=== PATIENT | female | born 1995 | race Caucasian/White ===

== ENCOUNTER 2023-08-11 14:41 | Emergency (ER) | payer OTHER, SELFPAY ==
[2023-08-11 15:21] VITALS: BP 114/81; PULSE 71; RESP 18; TEMP 36.4; O2SAT 99
--- NOTE | 2023-08-11 15:30 | ED.ABDPAIN ---
HPI - Abdominal Pain General Time Seen by Provider: 15:30 <Arianna Chowdary MD - Last Filed: 08/11/23 16:08> Date Seen: 08/11/23 <Arianna Chowdary MD - Last Filed: 08/11/23 16:08> Chief Complaint: Abdominal Pain <Arianna Chowdary MD - Last Filed: 08/11/23 16:08> Stated Complaint: Abdominal pain <Arianna Chowdary MD - Last Filed: 08/11/23 16:08> Time Seen by Provider: 08/11/23 15:30 <Arianna Chowdary MD - Last Filed: 08/11/23 16:08> Source: patient and RN notes reviewed <Arianna Chowdary MD - Last Filed: 08/11/23 16:08> Mode of arrival: ambulatory <Arianna Chowdary MD - Last Filed: 08/11/23 16:08> Limitations: no limitations <Arianna Chowdary MD - Last Filed: 08/11/23 16:08> History of Present Illness HPI narrative: Ann is a 27-year-old female sent from [place] in [facility] by Gabriel Souza [employer] with right lower quadrant abdominal pain. This patient is had urinary tract symptoms for about 2 weeks. She states she was just ignoring it hoping it would go away. There is initially some hematuria which resolved. She still having some dysuria. She has felt fatigued. No fevers but has had some chills. She had low back pain for about 2 weeks. She started with right lower quadrant to mid abdominal pain about a week ago and his just progressively gotten worse. Her LMP was 10 14. She does carry a diagnosis of endometriosis. There is no nausea vomiting diarrhea. Appetite has been normal. She has not eaten anything today. There is no family history or personal history of appendicitis or kidney stones. She has had no prior abdominal surgeries. [facility] here for further evaluation and probable need for imaging. She has limitation of available labs in clinic as well. Has been trying ibuprofen for pain management. <Arianna Chowdary MD - Last Filed: 08/11/23 16:08> MD elicited complaint: abdominal pain <Arianna Chowdary MD - Last Filed: 08/11/23 16:08> Related Data Hx Last Menstrual Period: 08/02/2023 <Arianna Chowdary MD - Last Filed: 08/11/23 16:08> Patient : No <Arianna Chowdary MD - Last Filed: 08/11/23 16:08> Home Medications: Previous Rx's Medication Instructions Recorded cefdinir 300 mg capsule 300 mg PO BID 10 days #20 caps 08/11/23 phenazopyridine 200 mg tablet 200 mg PO TID PRN pain 10 doses 08/11/23 (Pyridium) #10 tabs <Arianna Chowdary MD - Last Filed: 08/11/23 16:08> Allergies/Adverse Reactions: Allergies Allergy/AdvReac Type Severity Reaction Status Date / Time lactose Allergy Mild Upset Verified 08/11/23 15:23 stomach <Arianna Chowdary MD - Last Filed: 08/11/23 16:08> Review of Systems Status of ROS Reports: 6 or more systems reviewed and unremarkable except as noted in History and below <Arianna Chowdary MD - Last Filed: 08/11/23 16:08> [facility] Medical History: Medical History Normal spontaneous vaginal delivery ?O80 - Encounter for full-term uncomplicated delivery (ICD-10) History of varicella as a child ?Z86.19 - Personal history of other infectious and parasitic diseases (ICD-10) History of irregular menstrual cycles ?Z87.42 - Personal history of other diseases of the female genital tract (ICD-10) <Arianna Chowdary MD - Last Filed: 08/11/23 16:08> Surgical History: Surgical History History of third molar tooth extraction ?K08.409 - Partial loss of teeth, unspecified cause, unspecified class (ICD-10) History of laparoscopy (2016) ?Z98.890 - Other specified postprocedural states (ICD-10) <Arianna Chowdary MD - Last Filed: 08/11/23 16:08> Family History: Family History Maternal Grandmother Diabetes Paternal Grandmother Diabetes Uncle Diabetes Other Skin cancer <Arianna Chowdary MD - Last Filed: 08/11/23 16:08> Social History: Social History Narrative: Former smoker, Quit 03/27/2018 Tattoo 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 Highest level of school completed/degree received: high school graduate Smoking Status: Former smoker What tobacco products do you use: cigarettes Smoking quit date/years: <= 15 years ago Do you use any of these nicotine containing products: None Nicotine containing products detail: 2 cigarettes per day Second hand tobacco smoke exposure: No How often do you have a drink containing alcohol: 2-3 times a week How many standard drinks containing alcohol do you have on a typical day: 1 or 2 How often do you have six or more drinks on one occasion: Never AUDIT-C Alcohol total score: 3 Non-prescribed substance use: denies use Are you now , , , , never or living with a partner: Social isolation score (0-1 are the most socially isolated patients): 1 Gender Identity: female <Arianna Chowdary MD - Last Filed: 08/11/23 16:08> Exam Const: Vital Signs, click to edit/add: Vital Signs - 24 hr 08/11/23 15:21 Temperature 97.5 F L Pulse Rate [Right] 71 Respiratory Rate 18 Blood Pressure [Ri ght Upper Arm] 114/81 Pulse Oximetry 99 Oxygen Delivery Me thod Room Air Slender 27-year-old female ambulatory into the ED of her own accord. She is alert, interactive, no apparent distress. Sclera clear, speech normal. Lungs are clear with good air entry, no tachypnea, no wheezing or crackles. CV regular rate and rhythm, no murmur, normal S1 and S2. Abdomen is flat, soft, has right flank/CVA tenderness but no skin changes that are visible. She has mid abdominal to right lower quadrant tenderness without any rebound or guarding. There is no palpable underlying masses or organomegaly. <Arianna Chowdary MD - Last Filed: 08/11/23 16:08> Vital Signs, click to edit/add: Vital Signs - 24 hr 08/11/23 15:21 Temperature 97.5 F L Pulse Rate [Right] 71 Respiratory Rate 18 Blood Pressure [Ri ght Upper Arm] 114/81 Pulse Oximetry 99 Oxygen Delivery Me thod Room Air <Deon Mayen MD - Last Filed: 08/11/23 17:59> Documenting provider has reviewed patient's vital signs: yes <Arianna Chowdary MD - Last Filed: 08/11/23 16:08> Course Course ED Course: Will confirm negative test, obtain urinalysis. Patient will get basic labs including a CBC. Certainly in this differential urinary pathology including infection, kidney stones are all possibilities. Need to consider possible appendicitis although the time frame makes this less likely for me, has been going on potentially too long for that to be high suspicion. Doubt she has a surgical abdomen unless she might require some urinary intervention for a large kidney stone. Certainly will get imaging but patient is aware that I will wait for the CBC in urinalysis to come back for ordering CT imaging. She will likely have a CT of her abdomen, will need to decide on IV contrast or not. This really does not seem to be consistent with ovarian pathology but could be a consideration. <Arianna Chowdary MD - Last Filed: 08/11/23 16:08> Reevaluation(s) Time of Reevaluation #1: 16:08 <Arianna Chowdary MD - Last Filed: 08/11/23 16:08> Reevaluation #1: Reviewed with patient that she would be getting a CT scan of her abdomen without IV contrast. She is awaiting IV and labs. Have ordered 2 g IV Rocephin to treat for probable underlying urinary tract infection. We need to rule out any underlying kidney stone pathology. If there are no kidney stone seen, likely has some ascending urinary infection. She is taking orals, afebrile, do not believe she will need hospitalization. Care will be signed over to Dr. Mayen. <Arianna Chowdary MD - Last Filed: 08/11/23 16:08> Time of Reevaluation #2: 17:01 <Deon Mayen MD - Last Filed: 08/11/23 17:59> Reevaluation #2: Patient accepted in sign-out from Dr. Barillas. Briefly, 27-year-old female who comes in today with urinary symptoms abdominal pain. Urinalysis is consistent with infection patient has been given Rocephin, plan to discharge with Omnicef. CT scan is pending at this time, labs independently interpreted by me with normal basic panel, normal CBC. <Deon Mayen MD - Last Filed: 08/11/23 17:59> Time of Reevaluation #3: 17:57 <Deon Mayen MD - Last Filed: 08/11/23 17:59> Reevaluation #3: CT scan independently interpreted by me does not demonstrate any evidence of ureteral stone or other intra-abdominal pathology. Patient stable for discharge with antibiotics for urinary tract infection and outpatient follow-up. <Deon Mayen MD - Last Filed: 08/11/23 17:59> Vital Signs Vital signs: Initial Vital Signs Temperature 97.5 F L 08/11/23 15:21 Temperature Source Temporal Artery Scan 08/11/23 15:21 Pulse Rate 71 08/11/23 15:21 Pulse Strength 3+ Normal 08/11/23 15:21 Respiratory Rate 18 08/11/23 15:21 Blood Pressure 114/81 08/11/23 15:21 Blood Pressure Mean 92 08/11/23 15:21 Blood Pressure Position Sitting 08/11/23 15:21 Pulse Oximetry 99 08/11/23 15:21 Oxygen Delivery Method Room Air 08/11/23 15:21 Vital Signs Temperature 97.5 F L 08/11/23 15:21 Pulse Rate 71 08/11/23 15:21 Respiratory Rate 18 08/11/23 15:21 Blood Pressure 114/81 08/11/23 15:21 Pulse Oximetry 99 08/11/23 15:21 Oxygen Delivery Method Room Air 08/11/23 15:21 Temperature 97.5 F L 08/11/23 15:21 Pulse Rate 71 08/11/23 15:21 Respiratory Rate 18 08/11/23 15:21 Blood Pressure 114/81 08/11/23 15:21 Pulse Oximetry 99 08/11/23 15:21 Oxygen Delivery Method Room Air 08/11/23 15:21 <Arianna Chowdary MD - Last Filed: 08/11/23 16:08> Initial Vital Signs Temperature 97.5 F L 08/11/23 15:21 Temperature Source Temporal Artery Scan 08/11/23 15:21 Pulse Rate 71 08/11/23 15:21 Pulse Strength 3+ Normal 08/11/23 15:21 Respiratory Rate 18 08/11/23 15:21 Blood Pressure 114/81 08/11/23 15:21 Blood Pressure Mean 92 08/11/23 15:21 Blood Pressure Position Sitting 08/11/23 15:21 Pulse Oximetry 99 08/11/23 15:21 Oxygen Delivery Method Room Air 08/11/23 15:21 Vital Signs Temperature 97.5 F L 08/11/23 15:21 Pulse Rate 71 08/11/23 15:21 Respiratory Rate 18 08/11/23 15:21 Blood Pressure 114/81 08/11/23 15:21 Pulse Oximetry 99 08/11/23 15:21 Oxygen Delivery Method Room Air 08/11/23 15:21 Temperature 97.5 F L 08/11/23 15:21 Pulse Rate 71 08/11/23 15:21 Respiratory Rate 18 08/11/23 15:21 Blood Pressure 114/81 08/11/23 15:21 Pulse Oximetry 99 08/11/23 15:21 Oxygen Delivery Method Room Air 08/11/23 15:21 <Deon Mayen MD - Last Filed: 08/11/23 17:59> MDM - Abdominal Pain Lab Data Attestation: I reviewed the patient's lab results. <Arianna Chowdary MD - Last Filed: 08/11/23 16:08> Labs: Lab Results 08/11/23 08/11/23 Range/Units 15:30 15:58 WBC 5.41 (4.50-11.00) K/uL RBC 4.39 (4.00-5.20) m/uL Hgb 12.6 (12.0-16.0) gm/dL Hct 38.7 (33.0-51.0) % MCV 88 (80-100) fL MCH 29 (26-34) pg MCHC 33 (32-36) gm/dL RDW Coeff of Martha 12.1 (11.5-15.5) % Plt Count 274 (140-440) K/uL Neut % (Auto) 63.6 (42.0-72.0) % Lymph % (Auto) 25.1 (20-44) % Lamar % (Auto) 7.9 (0.0-11.0) % Eos % (Auto) 2.8 (0.0-7.0) % Baso % (Auto) 0.6 (0.0-3.0) % Neut # (Auto) 3.44 (1.7-7.0) K/uL Lymph # (Auto) 1.36 (0.90-2.90) K/uL Lamar # (Auto) 0.40 (0.00-0.90) K/UL Eos # (Auto) 0.15 (0.00-0.50) K/uL Baso # (Auto) 0.03 (0.00-0.30) K/uL Abs Immat Gran (auto) 0.00 (0.00-0.30) K/uL Imm/Tot Granulo (auto) 0.0 % Sodium 139 (135-149) mmol/L Potassium 3.9 (3.6-5.1) mmol/L Chloride 105 (96-114) mmol/L Carbon Dioxide 26 (20-32) mmol/L Anion Gap 8 (7-15) mEq/L BUN 11 (5-24) mg/dL Creatinine 0.8 (0.5-1.5) mg/dL Estimated GFR 102 ml/min Glucose 81 (60-115) mg/dL Calcium 8.7 (8.4-10.6) mg/dL Total Bilirubin 0.7 (0.1-1.5) mg/dL AST 36 H (12-35) U/L ALT 15 (4-35) U/L Alkaline Phosphatase 64 (40-150) U/L C-Reactive Protein 4.8 H (0.5-1.0) mg/dL Total Protein 7.7 (6.0-8.3) g/dL Albumin 4.4 (3.3-5.0) g/dL Urine Color Yellow (Yellow) Urine Appearance Cloudy A (Clear) Urine pH 6.0 (5.0-8.5) Ur Specific Kendrick 1.010 (1.000-1.030) Urine Protein Negative (Negative) Urine Glucose (UA) Negative (Negative) Urine Ketones Negative (Negative) Urine Blood Trace-intact A (Negative) Urine Nitrite Positive A (Negative) Urine Bilirubin Negative (Negative) Urine Urobilinogen 1.0 (0.2-1.0) Ur Leukocyte Esterase 1+ A (Negative) Urine RBC 0-2 (0-2) Urine WBC 10-25 A (0-5) Ur Squamous Epith Cells Moderate A (None-Few) Urine Bacteria Many A (None) Urine HCG, Qual Negative (Negative) <Arianna Chowdary MD - Last Filed: 08/11/23 16:08> Lab Results 08/11/23 08/11/23 Range/Units 15:30 15:58 WBC 5.41 (4.50-11.00) K/uL RBC 4.39 (4.00-5.20) m/uL Hgb 12.6 (12.0-16.0) gm/dL Hct 38.7 (33.0-51.0) % MCV 88 (80-100) fL MCH 29 (26-34) pg MCHC 33 (32-36) gm/dL RDW Coeff of Martha 12.1 (11.5-15.5) % Plt Count 274 (140-440) K/uL Neut % (Auto) 63.6 (42.0-72.0) % Lymph % (Auto) 25.1 (20-44) % Lamar % (Auto) 7.9 (0.0-11.0) % Eos % (Auto) 2.8 (0.0-7.0) % Baso % (Auto) 0.6 (0.0-3.0) % Neut # (Auto) 3.44 (1.7-7.0) K/uL Lymph # (Auto) 1.36 (0.90-2.90) K/uL Lamar # (Auto) 0.40 (0.00-0.90) K/UL Eos # (Auto) 0.15 (0.00-0.50) K/uL Baso # (Auto) 0.03 (0.00-0.30) K/uL Abs Immat Gran (auto) 0.00 (0.00-0.30) K/uL Imm/Tot Granulo (auto) 0.0 % Sodium 139 (135-149) mmol/L Potassium 3.9 (3.6-5.1) mmol/L Chloride 105 (96-114) mmol/L Carbon Dioxide 26 (20-32) mmol/L Anion Gap 8 (7-15) mEq/L BUN 11 (5-24) mg/dL Creatinine 0.8 (0.5-1.5) mg/dL Estimated GFR 102 ml/min Glucose 81 (60-115) mg/dL Calcium 8.7 (8.4-10.6) mg/dL Total Bilirubin 0.7 (0.1-1.5) mg/dL AST 36 H (12-35) U/L ALT 15 (4-35) U/L Alkaline Phosphatase 64 (40-150) U/L C-Reactive Protein 4.8 H (0.5-1.0) mg/dL Total Protein 7.7 (6.0-8.3) g/dL Albumin 4.4 (3.3-5.0) g/dL Urine Color Yellow (Yellow) Urine Appearance Cloudy A (Clear) Urine pH 6.0 (5.0-8.5) Ur Specific Kendrick 1.010 (1.000-1.030) Urine Protein Negative (Negative) Urine Glucose (UA) Negative (Negative) Urine Ketones Negative (Negative) Urine Blood Trace-intact A (Negative) Urine Nitrite Positive A (Negative) Urine Bilirubin Negative (Negative) Urine Urobilinogen 1.0 (0.2-1.0) Ur Leukocyte Esterase 1+ A (Negative) Urine RBC 0-2 (0-2) Urine WBC 10-25 A (0-5) Ur Squamous Epith Cells Moderate A (None-Few) Urine Bacteria Many A (None) Urine HCG, Qual Negative (Negative) <Deon Mayen MD - Last Filed: 08/11/23 17:59> Discharge Plan Discharge Clinical Impression: Acute lower UTI <Arianna Chowdary MD - Last Filed: 08/11/23 16:08> Patient Disposition: Home, Self-Care <Arianna Chowdary MD - Last Filed: 08/11/23 16:08> Condition: Stable <Arianna Chowdary MD - Last Filed: 08/11/23 16:08> Instructions: Urinary Tract Infection in Women (DC) <Arianna Chowdary MD - Last Filed: 08/11/23 16:08> Activity Level: No Restrictions and Activity as Tolerated <Arianna Chowdary MD - Last Filed: 08/11/23 16:08> No Restrictions and Activity as Tolerated <Deon Mayen MD - Last Filed: 08/11/23 17:59> Discharge Diet: Regular <Arianna Chowdary MD - Last Filed: 08/11/23 16:08> Regular <Deon Mayen MD - Last Filed: 08/11/23 17:59> Prescriptions: New cefdinir 300 mg capsule 300 mg PO BID 10 Days Qty: 20 0RF phenazopyridine [Pyridium] 200 mg tablet 200 mg PO TID PRN (Reason: pain) Qty: 10 0RF <Arianna Chowdary MD - Last Filed: 08/11/23 16:08> Follow Up/Referrals: Provider,Not a Local [Primary Care Provider] - <Arianna Chowdary MD - Last Filed: 08/11/23 16:08> Stand Alone Forms: MyHealth Info Instructions <Arianna Chowdary MD - Last Filed: 08/11/23 16:08>
[2023-08-11 15:39] LABS: Ur HCG Qualitative* Negative (Negative)
[2023-08-11 15:41] LABS: Appearance Urine Cloudy (Clear); Bilirubin Urine Negative (Negative); Blood Urine Trace-intact (Negative); Color Urine Yellow (Yellow); Glucose Urine Negative (Negative); Ketones Urine Negative (Negative); Leukocyte Esterase Urine 1+ (Negative); Nitrite Urine Positive (Negative); Protein Urine Negative (Negative)
[2023-08-11 15:53] LABS: Bacteria Urine Many; RBC Urine 0-2 (0-2); Squamous Epithelial Cell Urine Moderate (None-Few)
[2023-08-11] MEDS: KETOROLAC 15 MG/ML inj IVP (15:56)
--- NOTE | 2023-08-11 16:04 | CRLHL7_ITS ---
For Patients: As a result of the Century Cures Act, medical imaging exams and procedure reports are released immediately into your electronic medical record. You may view this report before your referring provider. If you have questions, please contact your health care provider. INDICATION: Right-sided abdominal pain. TECHNIQUE: CT abdomen and pelvis without contrast. COMPARISON: None. FINDINGS: Lower chest: Unremarkable. Liver: Normal in size and attenuation. No suspicious masses. Gallbladder and bile ducts: No stones or inflammation. No biliary dilatation. Pancreas: Unremarkable. No mass or inflammation. Spleen: Normal in size. No masses. Adrenal glands: Normal in size. No nodules. Kidneys: Normal in size. No suspicious masses, stones, or hydronephrosis. GI tract: Mild colonic stool burden. Normal in caliber. No sign of mass or inflammation. Normal appendix. Vasculature: Abdominal aorta is normal in caliber. Lymph nodes: No lymphadenopathy. Peritoneum/Abdominal Wall: Unremarkable. No sign of mass or infiltration. No free air or significant free fluid. Pelvis: Unremarkable. No pelvic masses. Bones: Unremarkable for age. IMPRESSION: No acute intra-abdominal abnormality. Mild colonic stool burden. Please note that all CT scans at this facility use dose modulation, iterative reconstruction, and/or weight-based dosing when appropriate to reduce radiation dose to as low as reasonably achievable. Dictated by Bobby Rider MD @ 08/11/2023 6:43:17 PM (Electronically Signed)
[2023-08-11 16:09] LABS: Basophils Absolute Auto 0.03 K/uL (0.00-0.30); Basophils Percent Auto 0.6 % (0.0-3.0); Eosinophils Absolute Auto 0.15 K/uL (0.00-0.50); Eosinophils Percent Auto 2.8 % (0.0-7.0); Hematocrit 38.7 % (33.0-51.0); Hemoglobin* 12.6 gm/dL (12.0-16.0); Lymphocytes Absolute Auto 1.36 K/uL (0.90-2.90); Lymphocytes Percent Auto 25.1 % (20-44); Mean Corpuscular HGB Conc 33 gm/dL (32-36); Mean Corpuscular Hemoglobin 29 pg (26-34); Mean Corpuscular Volume 88 fL (80-100); Monocytes Percent Auto 7.9 % (0.0-11.0); Neutrophils Absolute Auto 3.44 K/uL (1.7-7.0); Neutrophils Percent Auto 63.6 % (42.0-72.0); Platelet Count* 274 K/uL (140-440); RDW Coefficient of Variation % 12.1 % (11.5-15.5); Red Blood Count 4.39 m/uL (4.00-5.20); White Blood Count* 5.41 K/uL (4.50-11.00)
[2023-08-11 16:21] LABS: Albumin* 4.4 g/dL (3.3-5.0); Chloride* 105 mmol/L (96-114); Slide Review Reflex No
[2023-08-11 16:22] LABS: Potassium* 3.9 mmol/L (3.6-5.1); Sodium* 139 mmol/L (135-149)
[2023-08-11 16:24] LABS: Bilirubin Total* 0.7 mg/dL (0.1-1.5); Creatinine* 0.8 mg/dL (0.5-1.5); Estimated Glomerular Filt Rate 102 ml/min
[2023-08-11 16:25] LABS: Alanine Aminotransferase* 15 U/L (4-35); Alkaline Phosphatase* 64 U/L (40-150); Anion Gap 8 mEq/L (7-15); Aspartate Amino Transferase* 36 U/L (12-35); Blood Urea Nitrogen* 11 mg/dL (5-24); Calcium* 8.7 mg/dL (8.4-10.6); Carbon Dioxide* 26 mmol/L (20-32); Glucose* 81 mg/dL (60-115); Total Protein* 7.7 g/dL (6.0-8.3)
[2023-08-11] MEDS: cefTRIAXone 2 GM in 0.9 % SODIUM CHLORIDE Mini-bag 100 ML IVPB (16:26)
[2023-08-11 16:27] LABS: C Reactive Protein* 4.8 mg/dL (0.5-1.0)
== END 2023-08-11 18:09 | disposition home or self-care (01) ==
PROVIDERS: Emergency Provider Family Medicine
DX: N39.0 Urinary tract infection, site not specified (principal)
CPT/HCPCS: 36415; 74176; 80053; 81001; 81025; 85025; 86140; 87086; 87186; 96365; 96375; 99284; J0696; J1885

== ENCOUNTER 2024-06-17 07:41 | Outpatient (CLI) | payer OTHER, SELFPAY ==
--- OUTSIDE RECORDS SUMMARY | 2024-06-17 07:44 | XMS_ITS | Clinical Summary ---
Author Organization [facility] Address [place], [place] [address] Care Team Providers Care Dowel Maker Name Role Phone None Primary Care Provider Unavailabl e Allergies Active Allergy Reactions Criticality Noted Date Comments Lactase *Unknown 11/03/2018 Upset stomach Medications No known medications Active Problems Problem Noted Date Diagnosed Date Tobacco dependence 02/03/2023 ASCUS with positive high risk HPV cervical 04/19 Overview: 04/2018 ASCUS/HPV positive; Plan: pap in 1 year; Due- 04/2019 Cyst of left ovary 11/10/2015 Overview: Recommend follow up us in 6 weeks after menses Endometriosis determined by laparoscopy 10/20/19 16 Resolved Problems Problem Noted Date Diagnosed Date Resolved Date Closed fracture of shaft of metacarpal bone 05/19/2019 02/03/2023 02/03/2023 Supervision of normal first teen , unspecified trimester 04/01/2018 02/03/2023 Overview: 22 y.o. Patient preferred name: Only if different, otherwise erase AMA if appropriate Domestic violence screen only if positive Medical concerns Early GTT indicated: BMI >25 or >23 in Americans and no H/O vag delivery X #(dates, name of children, any problems) Genetic screening: desires ultrasound only ( [place] or [place]) BMI:# Recommended wt gain Write smoker only if a smoker, otherwise erase HSV: n/a Ultrasound findings: n/a Flu vaccine: n/a Pertussis Vaccine: up to date Peds: up to date Single keeping/: . FOB: involved, name. involved. Varicella w/o complication 0 01/31/2014 Overview: childhood disease Immunizations Name Administration Dates Next Due DTaP 03/06/1995,01/10/1995,07/10/1994 ,03/26/1994 HIB PRP-T (ActHIB,Hiberix) 03/06/1995,01/10/1995 ,07/10/1994,03/26/1994 HPV 9 (Gardasil 9) 05/06/2017 Hepatitis A (Peds) 08/17/2010,06/03/2006 Hepatitis B (Peds) 07/10/1994,03/26/1994, 994 Human Papilloma Virus Vaccine 08/26/2014, 014 Inactivated Polio Vaccine 06/03/2006 MMR 06/03/2006,03/06/1995 Meningococcal Vaccine (Menveo) 06/21/2014 Oral Polio Vaccine 03/06/1995,07/10/1994, 994 Tdap 05/06/2017,06/03/2006 Family History Medical History Relation Name Comments Good Health Brother 4 Good Health Brother 5 Good Health Brother 6 Good Health Father Good Health Maternal Grandfather Diabetes Maternal Grandmother Diabetes Maternal Uncle Cancer Mother skin Good Health Mother Unknown Paternal Grandfather no cont act Diabetes Paternal Grandmother Good Health Sister 2 Marii Relation Name Status Comments Brother 1 Alive Brother 2 Alive Brother 3 Alive Brother 4 Brother 5 Brother 6 Father Alive Maternal Grandfather Alive Maternal Grandmother Maternal Uncle Mother Alive Paternal Grandfather unknown Paternal Grandmother Sister 1 Alive Sister 2 Marii Social History Tobacco Use Types Packs/Day Years Used Date Smoking Tobacco: Every Day Cigarettes Started: 09/10/2015; Last attempted to quit: 03/27/2018 Smokeless Tobacco: Never Tobacco Cessation:Ready to Q uit: Not Asked; Counseling Given: Not Answered Comments:social Alcohol Use Standard Drinks/Week Comments Yes 0 (1 standard drink = 0.6 oz pur e alcohol) social PHQ-2 Answer Date Recorded PHQ-2 TOTAL SCORE 2 01/23/2022 Social Connections Answer Date Recorded Frequency of Communication with Friends and Fami ly Not on file 02/05/2024 Financial Resource Strain Answer Date R ecorded Difficulty of Paying Living Expenses 3 02/03/2023 Difficulty of Paying Living Expenses Not on file 02/03/2023 Food Insecurity Answer Date Recorded Worried About Running Out of Food in the Last Ye ar 1 02/03/2023 Transportation Needs Answer Date Record ed Lack of Transportation (Medical) 1 02/03/2023 Housing Stability Answer Date Recorded Unable to Pay for Housing in the Last Year 1 02/03/2023 Sex and Gender Information Value Date Recorded Sex Assigned at Not on file Gender Identity Not on file Sexual Orientation Not on file Obstetrics History Para Term AB IAB SAB Ectopic Multiple Livin g Live Births 1 0 0 0 0 0 0 0 0 0 Date Outcome GA Total Labor Labor/2nd/3rd Weight Sex Type Anes PTL Nida A1 A5 Name Clin Last Filed Vital Signs Vital Sign Reading Time Taken Comments Blood Pressure 98/64 02/03/2023 8:55 AM CDT Pulse 91 02/03/2023 8:55 AM CDT Temperature 37.2 ??C (99 ??F) 02/03/2023 8:55 AM CDT Respiratory Rate 18 02/03/2023 8:55 AM CDT Oxygen Saturation 99% 02/03/2023 8:55 AM CDT Inhaled Oxygen Concentration - - Weight 52.6 kg (116 lb) 02/03/2023 8:55 AM CDT Height 157.5 cm (5' 2) 02/03/2023 8:55 AM CDT Body Mass Index 21.22 02/03/2023 8:55 AM CDT Plan of Treatment Health Maintenance Due Date Last Done Comments Pneumococcal series for age 6-64 (1 of 2 - PCV) 1999 Hepatitis C screening for ag e 18-79 2011 Depression screening for age 12+ 01/23/2023 01/23/2022, 10/01/2017, 10/30/2016, Additional history exists Pap test for age 21-65 05/09/2023 , 04/21/2018, 04/21/2018, Additional history exists COVID-19 vaccine series (2022- season) 2023 BMI (ht and wt on same day) for age 18+ 02/04/2024 02/03/2023, 04/17/2022, 01/23/2022, Additional history exists Influenza for age 9-49 06/20/2024 Tetanus booster 05/06/2027 05/06/2017, 06/03/2006 Tdap Completed 05/06/2017, 06/03/2006 HIV for age 15-65 Completed 04/01/2018 Procedures Procedure Name Priority Date/Time Associated Diagnosis Comments PASTER OPERATOR THIN PREP PAP SCREEN IMAGED Routine 05/09/2022 1:50 PM CDT ANTI HIV 1/2 Routine 04/01/2018 12:55 PM CDT , unspecified gestational age from Last 3 Months or Most Recently Relevant to Health Maintenance Results * PASTER OPERATOR THIN PREP PAP SCREEN IMAGED (05/09/2022 1:50 PM CDT) Case Report Gynecologic Cytology Report ? Case: [id number] ? Authorizing Provider: ??Amy Donohue MD ?Collected: ? 05/09/2022 1350 ? Ordering Location: ? [facility] ?Received: ?05/13/2022 0858 ? First Screen: ?Ester Luna ? Rescreen: ?Ольга Waldron ? Pathologist: ? Dulce Dietz MD ? Specimen: ?PASTER OPERATOR ThinPrep Vial Screening, Cervical ? 05/27/2022 9:20 AM CDT [facility] INTERPRETATION/ RESULT NEGATIVE FOR INTRAEPITHELIAL LESION OR MALIGNANCY (NIL) (none) 05/27/2022 9:20 AM T [facility] R NON-NEOPLASTIC FINDING(S) Reactive cellular changes associated with inflammation/repa ir 05/27/2022 9:20 AM CDT [facility] ORGANISM(S) Shift in tarun suggestive of bacterial vaginosis 05/27/2022 9:20 AM CDT [facility] SPECIMEN ADEQUACY Satisfactory for evaluation Endocervical component present 05/27/2022 9:20 AM CDT [facility] HPV REQUEST HPV if ASCUS 05/27/2022 9:20 AM CDT [facility] Date of LMP 04/16/2022 05/27/2022 9:20 AM CDT [facility] Last Pap Date 05/27/2022 9:20 AM CDT [facility] Comment:04/2018 Last Pap Result ASCUS 9:20 AM CDT [facility] Comment:+HPV Abnormal Pap or [place] Bx in last 5 years Yes 05/27/2022 9:20 AM CDT [facility] [place] Bx Done Today No 05/27/2022 9:20 AM CDT [facility] Additional Information 05/27/2022 9:20 AM CDT [facility] Comment: Interpreted at [facility] - [address], [place] [address] Automated Review Successful 05/27/2022 9:20 AM CDT [facility] Comment:Specimen processed s uccessfully by automated greenhouse staff device, ThinPrep Imaging System, [employer] Note The pap test is a screening technique, not a diagnostic procedure. It is used primarily to screen for squamous cancers and precursor lesions. Published studies have shown that it is subject to both false negative and false positive results. The pap test should not be used as the sole means to diagnose or exclude pre-malignant and malignant lesions. 05/27/2022 9:20 AM CDT [facility] Other (Cervical) 05/09/2022 1:50 PM CDT 05/13/2022 8:58 AM CDT Amy Donohue MD PATHOLOGY/CYTOLOGY [facility] [address] [place] [address], * ANTI HIV 1/2 (04/01/2018 12:55 PM CDT) HIV-1/HIV-2 ANTIBODY Non-Reacti ve Non-Reacti ve 04/01/2018 8:45 PM CDT [facility] Comment:HIV-1 p24 and HIV-1/ HIV-2 Ab not detected. Blood BLOOD SPECIMEN / Unknown Butterfly / Unknown 04/01/2018 12:55 PM CDT 04/01/2018 12:55 PM CDT Suresh Nicholas MD SEND OUTS [facility] [address] [place] [address], from Last 3 Months or Most Recently Relevant to Health Maintenance Care Teams Dowel Maker Relationship Specialty Start Date End Date None . PCP - General 04/28/21
--- NOTE | 2024-06-17 08:15 | CRLHL7_ITS ---
For Patients: As a result of the Century Cures Act, medical imaging exams and procedure reports are released immediately into your electronic medical record. You may view this report before your referring provider. If you have questions, please contact your health care provider. INDICATION: . Assess for dates and viability. COMPARISON: None available. TECHNIQUE: Grayscale pelvic ultrasound via transabdominal and endovaginal approaches. FINDINGS: Gestational sac and number: 1 Sac size and shape: Normal shape. No perigestational hemorrhage. MSD 2.9 cm (corresponding to a gestational age of 8 weeks 0 days). Placenta: Not yet developed. Yolk sac: Present. Amniotic fluid: Subjectively normal. heart rate: bpm. CRL: 1.1cm (as measured on the endovaginal portion of the exam). US EGA: 7 weeks 1 day US NAS: 02/02/2025 LMP NAS: Uterus: Retroflexed. Right ovary: Normal. Left ovary: 3.3 cm thick walled unilocular anechoic cyst. IMPRESSION: Findings diagnostic for early failure (i.e. a crown-rump length equal to or greater than 7 mm on an endovaginal scan with no demonstrable embryonic cardiac activity). Incidental findings as above. Dictated by Ty Hussein MD @ 06/17/2024 8:27:17 AM (Electronically Signed)
== END 2024-06-17 07:42 | disposition home or self-care (01) ==
LOC: US 07:42
PROVIDERS: Visit Provider Advanced Practice Midwife
DX: Z34.91 Encounter for supervision of normal pregnancy, unspecified, first trimester (principal); O02.1 Missed abortion
CPT/HCPCS: 76817